=== PATIENT | female | born 1965 | race Caucasian/White ===

== ENCOUNTER 2018-04-16 08:15 | Day surgery (SDC) | payer OTHER ==
[2018-04-15 15:02] VITALS: BMI 43.6
--- NOTE | 2018-04-16 08:08 | HP ---
[facility] - Chief Complaint Chief Complaint: right knee pain - Past Medical History Allergies/Adverse Reactions: Allergies Allergy/AdvReac Type Severity Reaction Status Date / Time No Known Allergies Allergy Verified 04/15/18 15:02 ...LMP: 01/18/18 - Current Medications Current Medications: Home Medications Medication Instructions Recorded Amlodipine Besylate 10 mg PO DAILY 04/15/18 Bcp 1 tab PO DAILY 04/15/18 Losartan Potassium 50 mg PO HS 04/15/18 Oxycodone HCl/Acetaminophen 1 tab PO Q6H #20 tablet MDD 4 04/16/18 [Percocet 5-325 mg Tablet] [facility]ellite Physical Exam - Physical Examination General Appearance: Well Nourished, Well Developed, Alert & Oriented x3 ENT: Clear Lung: Normal air movement Heart: Regular rate & rhythm Extremities: Other (right knee- + swelling, + ttp, decr rom ,+mcmurrays, nvi MRI + mt) Neurological: Intact, Alert, Oriented [facility]ellite Impression/Plan - Impression/Plan Impression: right knee internal derangement Operative Procedure: right knee arthroscopy Date to be Performed: 04/16/18
[2018-04-16] MEDS ORDERED: DEXAMETHASONE SOD PHOSPHATE 4 MG/1 ML VIAL ONE (09:23)
[2018-04-16] MEDS ORDERED: MIDAZOLAM HCL 2 MG/2 ML SINGLE DOSE VIAL ONE (09:23)
[2018-04-16] MEDS ORDERED: LIDOCAINE HCL/PF 2% SDV 5ML VIAL ONE (09:23)
[2018-04-16] MEDS ORDERED: ONDANSETRON 4 MG/2 ML VIAL ONE (09:23)
[2018-04-16] MEDS ORDERED: SODIUM CHLORIDE 0.9% P/F 10 ML VIAL IJ ONE (09:23)
[2018-04-16] MEDS ORDERED: ceFAZolin SODIUM 1 GM VIAL ONE (09:23)
[2018-04-16] MEDS ORDERED: BUPIVACAINE HCL/PF 0.5% (5MG/ML) 10 ML VIAL ONE (09:31)
[2018-04-16] MEDS ORDERED: LIDOCAINE 1%/EPI 1:100000 (20 ML MULTI DOSE VIAL) ONE (09:31)
[2018-04-16] MEDS ORDERED: ceFAZolin SODIUM 1 GM VIAL IVPB ONE (09:50)
[2018-04-16] MEDS ORDERED: BUPIVACAINE HCL/PF (5 MG/ML) 30 ML VIAL IJ ONE (09:57)
[2018-04-16] MEDS ORDERED: LIDOCAINE 1%/EPI 1:100000 (50 ML MULTI DOSE VIAL) NR ONE (09:57)
[2018-04-16] MEDS ORDERED: PROPOFOL 20 ML ONE (10:02)
[2018-04-16] MEDS ORDERED: KETOROLAC TROMETHAMINE 30 MG/1 ML VIAL ONE (10:13)
--- NOTE | 2018-04-16 10:13 | OP ---
Operative Note - Note: Operative Date: 04/16/18 ([facility]) Pre-Operative Diagnosis: right knee internal derangement Operation: right knee arthroscopy with removal of loose bodies Post-Operative Diagnosis: Same as Pre-op Surgeon: Madi Wilson Anesthesiologist/ELECTRONIC DATA INTERCHANGE SPECIALIST: Jesus Centeno Anesthesia: General, Local Specimens Removed: loose bodies, shavings Estimated Blood Loss (mls): 5 Operative Report Dictated: Yes
--- NOTE | 2018-04-16 11:17 | OP ---
DATE OF OPERATION: 04/16/2018 PREOPERATIVE DIAGNOSIS: Internal derangement, right knee. POSTOPERATIVE DIAGNOSIS: Internal derangement, right knee. PROCEDURE: Right knee arthroscopy and removal of loose bodies. SURGEON: Madi Wilson MD ANESTHESIA: General with LMA. CLOSURES: 4-0 nylon. COMPLICATIONS: None. CONDITION: Stable. DESCRIPTION OF PROCEDURE: The patient was taken to the operating room on April 16, 2018. General anesthesia with LMA was administered by the anesthesiologist. IV Kefzol was administered prior to the case. The right lower extremity was prepped and draped in the usual sterile fashion. The mediolateral infrapatellar portal sites were infiltrated with 1% Xylocaine with 1:100 epinephrine. Both ports were then made with a 15 blade and blunt trocar. The scope was placed in the lateral infrapatellar portal and up to suprapatellar pouch. The trocar was used to infuse a cocktail of 10 mL of 1% Xylocaine, 10 mL of 0.5% Marcaine, and 20 mL of arthroscopic saline into the knee. This was allowed to stay in the knee for a few minutes before we continued with the procedure to allow the anesthetic to work. The pouch was visualized to be clean. The medial and lateral gutters were visualized to be clean. The undersurface of the patella and trochlea had extensive grade 4 changes especially on the lateral patella facet and the lateral trochlea. With valgus stress on the knee, the medial compartment was entered. The medial meniscus was visualized and probed and found to be intact. The medial femoral condyle was run and found to be intact as was the medial tibial plateau. At 90 degrees, the ACL was visualized and probed and found to be intact. There were multiple large loose bodies encountered in the notch and anteriorly. They were debrided by using a baby Catherine through the inframedial portal. Smaller circular loose bodies were encountered throughout this region. They were cleaned out of the knee with a shaver. With a figure-4 position, the lateral compartment was entered. The lateral meniscus was visualized and probed and found to be intact. The lateral femoral condyle was run and found to be intact as was the lateral tibial plateau. There were marginal osteophytes, but they were stable and less in situ. The knee was thoroughly inspected in multiple locations and allowed the knee to flex and extend multiple times to help stir up any posterior loose bodies. At 90 degrees, we retracted the ACL to look posteriorly in the notch and did not find any other loose bodies. Again, both gutters were found to be clean. The knee was thoroughly irrigated and lavaged. The fluid was drained, and the trocars were removed. Prior to pulling the outflow trocar, 20 mL of 0.5% Marcaine was infused into the knee for postoperative analgesia. Both portals were closed with 4-0 nylon. A sterile pressure dressing was applied. The patient was awakened from anesthesia and transferred to recovery in stable condition. No complications. Estimated blood loss negligible. Kenia [id number]
[2018-04-16 11:48] VITALS: PULSE 72; TEMP 97.7
[2018-04-16] MEDS ORDERED: oxyCODONE HCL 5 MG TABLET PO PRN ×2 (12:35)
[2018-04-16] MEDS ORDERED: ONDANSETRON 4 MG/2 ML VIAL IVPUSH PRN (12:35)
[2018-04-16] MEDS ORDERED: LACTATED RINGERS SOLUTION 1,000 ML IV SCH (12:45)
[2018-04-16 14:01] VITALS: BP 133/66
--- NOTE | 2018-04-21 09:51 | PATH ---
Surgical Pathology Report Patient Name: CAROLYN SANTOS [facility]. Rec. #: [id number] /Age/Gender: 1965 (Age: 52) / F Account: [id number] [facility] Taken: 04/16/2018 Received: 04/16/2018 Reported: 04/21/2018 Physicians: Madi Wilson M.D. Specimen(s) Received A: JOINT, LOOSE BODY RIGHT KNEE B: SHAVINGS RIGHT KNEE Clinical History Internal derangement right knee Final Diagnosis A. LOOSE BODY, RIGHT KNEE, EXCISION: CONSISTENT WITH LOOSE BODY. B. RIGHT KNEE, SHAVINGS: FIBROSYNOVIAL TISSUE WITH DEGENERATIVE CHANGE. Electronically Signed Nomi Arguelles M.D. Gross Description A. Received in formalin labeled "right knee loose body," are 5 garcia-yellow, irregular portions of calcified cartilage ranging from 0.6-1.1 cm in greatest dimension. Chaplain Resident sections are submitted in one cassette, following decalcification. B. Received in formalin, labeled "right knee shavings," is a 3.5 x 3.0 x 0.2 cm. aggregate of garcia-yellow soft tissue fragments. A quality control representative portion is submitted in one cassette. 04/16/201804/16/2018
== END 2018-04-16 13:00 | disposition home or self-care (01) ==
LOC: JASU-SURG 08:15
PROVIDERS: ATTEND Orthopaedic Surgery
PROC: 0SCC4ZZ Extirpation of Matter from Right Knee Joint, Percutaneous Endoscopic Approach (ICD-10-PCS; principal; 2018-04-16 09:30)
DX: M23.41 Loose body in knee, right knee (principal)
CPT/HCPCS: 36415; 84703; 88304-TC; 94760